=== PATIENT | female | born 1985 | race African-American/Black ===

== ENCOUNTER 2019-06-24 17:41 | Emergency (ER) | payer BC, MEDICAID ==
[~2019-06-24] VITALS: Ht 170.2 cm; Wt 75.0 kg
[2019-06-24 20:55] VITALS: BP 127/89
== END 2019-06-24 21:20 | disposition home or self-care (01) ==
LOC: ER 17:41
DX: S00.83XA Contusion of other part of head, initial encounter (principal); Y08.89XA Assault by other specified means, initial encounter; Y93.89 Activity, other specified; Y92.238 Other place in hospital as the place of occurrence of the external cause; Y99.8 Other external cause status
CPT/HCPCS: 81025; 99284

== ENCOUNTER 2019-12-07 20:38 | Emergency (ER) | payer BC ==
[~2019-12-07] VITALS: Ht 170.2 cm; Wt 81.0 kg
[2019-12-07 20:45] VITALS: BP 121/90
== END 2019-12-07 21:07 | disposition home or self-care (01) ==
LOC: ER 20:38
DX: L70.9 Acne, unspecified (principal); Z98.890 Other specified postprocedural states
CPT/HCPCS: 99283

== ENCOUNTER 2020-02-19 17:14 | Emergency (ER) | payer BC ==
[~2020-02-19] VITALS: Ht 175.3 cm; Wt 80.0 kg
[2020-02-19 17:15] VITALS: BP 123/77
== END 2020-02-19 18:36 | disposition home or self-care (01) ==
LOC: ER 17:14
DX: Z76.0 Encounter for issue of repeat prescription (principal); L70.0 Acne vulgaris
CPT/HCPCS: 99283

== ENCOUNTER 2020-04-21 16:53 | Emergency (ER) | payer BC ==
[~2020-04-21] VITALS: Ht 170.2 cm; Wt 88.0 kg
[2020-04-21 19:00] VITALS: BP 124/77
== END 2020-04-21 19:01 | disposition home or self-care (01) ==
LOC: ER 16:53
DX: L70.8 Other acne (principal); Z76.0 Encounter for issue of repeat prescription
CPT/HCPCS: 99282; 99283